=== PATIENT | male | born 1975 | race Caucasian/White ===

== ENCOUNTER 2021-01-28 14:34 | Emergency (ER) | payer MEDICAID, SELFPAY ==
[2021-01-28 14:35] VITALS: BP 145/89; PULSE 113; RESP 18; TEMP 36.6; O2SAT 100; BMI 22.0
--- NOTE | 2021-01-28 14:56 | ED.RN ---
PT POCKET KNIFE LOCKED IN SECURITY OFFICE.
--- NOTE | 2021-01-28 15:00 | ED.DCSUM_ITS ---
History of Present Illness Chief Complaint: Alt LOC Informant: Patient, - - Law enforcement Onset: Today - Law enforcement was concern regarding his behavior. His car was found in a field. No reported damage. He walked from his vehicle because his phone did not work and he thought he was dehydrated. He also states he was getting hot in the car., Yesterday - Per significant other abnormal behavior yesterday Context: - - Certain Timing: Intermittent - Presumed Quality: Abnormal behavior per significant other and parents Location: Brought in by EMS for evaluation. 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 Patient stated that his parents thought his behavior was normal. He volunteered this after I informed him that his sign ificant other thought his behavior was abnormal last evening. He denies drug use. He reported drinking 1 beer to EMS. He was treated with IV penicillin for the tertiary syphilis and placed on prednisone because of bilateral optic neuritis. He does report intermittent photophobia. He presently denies headache. He denies change in his vision from baseline. He denies ringing in his ears or decreased hearing. Nuys trouble speech or swallowing. He denies cardiac respiratory symptoms. He does report nausea vomiting diarrhea. Denies dysuria, frequency, urgency or hematuria. He denies paresthesia, anesthesia or motor weakness. He denies problems with balance. Patient did confirm he has had problems with electrolytes in the past with hyponatremia and hypokalemia. He is also diabetic. Patient denies suicidal homicidal ideation. Patient significant other is in the department. Single there is known patient for 19 to 20 years. He states he is still receiving treatment for tertiary syphilis. He states he does not use drugs. He drives for [employer]. He believes that is the reason that he is in [place]. He was informed that to complete his evaluation a urine specimen is required. He states he would let him know that a urine specimen was needed and if unremarkable will be able to go home. Prior similar symptoms: Yes - Hyponatremia Recent Illness/Hospitalization: No - Past Medical History (1) History of tertiary syphilis Status: Acute (2) History of hyponatremia Status: Acute Past Medical History - Allergies and Home Meds Allergies/Adverse Reactions: Allergies ondansetron [From Zofran] Allergy (Verified 01/28/21 14:39) Hives lorazepam [From Ativan] Adverse Reaction (Verified 01/28/21 14:39) NEEDS FOLLOW-UP Primary Care Physician: Sandy Jennings,Out of [NON-STAFF] - Prior records reviewed: No Surgical History: noncontributory Lives: Spouse/ Significant Other Smoking Status: Former smoker Alcohol: Occasional Drugs: None Review of Systems General: Denies: Chills, Fever, Malaise, Subjective Eyes: Reports: Visual changes - bilaterally. Denies: Blurred Vision - bilaterally, Diplopia ENT: Denies: Bilateral ear pain, Rhinorrhea, Sore throat Cardiovascular: Denies: Chest pain, Palpitations Respiratory: Denies: Dyspnea, Cough, Dyspnea on exertion Gastrointestinal: Reports: Nausea. Denies: Abdominal pain, Vomiting, Diarrhea, Constipation, Melena, Hematochezia Genitourinary: Denies: Dysuria, Hematuria, Frequency Musculoskeletal: Denies: Myalgias, Arthralgias, Neck pain, Back pain, Swelling, Extremity Pain, -, - Skin: Denies: Rash, Wounds Neurological: Denies: Headache, Weakness, Numbness Psych: Denies: Depression, Anxiety, Suicidal thoughts Endocrine: Denies: Polyuria, Polydipsia Hematologic: Denies: Easy bruising, Easy bleeding Physical Exam Vital Signs/Narrative: Vital Signs Temp Pulse Resp BP Pulse Ox 01/28/21 14:35 97.8 F 113 H 18 145/89 H 100 Inital Vital Signs reviewed: Yes General: Well nourished, Well developed, No Acute Distress Head: Normocephalic, Atraumatic Eyes: Perrl, EOMI, - - There is no APD. There is no nystagmus.. Negative for: Pale conjunctiva, Scleral icterus ENT: Moist mucous membranes, No rhinorrhea, TM's clear Neck: Supple, Nontender, No lymphadenopathy, No JVD Cardiovascular: Regular rhythm, No murmurs, Normal S1, Normal S2, Tachycardia Respiratory: No distress, CTA bilaterally, Chest nontender Abdomen: Soft, Nontender, Nondistended, Normal bowel sounds Rectal: Deferred Back: Nontender, Normal Inspection. Negative for: CVA tenderness Extremities: Nontender, No edema Skin: Normal color, No rash, Trauma - Abrasions upper and lower extremity. Neurological: Alert, Oriented x3, Cranial nerves II-XII grossly intact, Normal Strength, Normal Sensation, Normal DTR, Normal Gait, - - Cerebellar testing normal Psychological: Normal affect, Normal Mood Diagnostic/Tx/Re-eval Laboratory Results 01/28/21 01/28/21 01/28/21 15:20 15:20 15:30 WBC Cancelled Corrected WBC Cancelled RBC Cancelled Hgb Cancelled Hct Cancelled MCV Cancelled MCH Cancelled MCHC Cancelled RDW Std Deviation Cancelled RDW Coeff of Kuldeep Cancelled Plt Count Cancelled MPV Cancelled Immature Gran % (Auto) Cancelled Neut % (Auto) Cancelled Lymph % (Auto) Cancelled Greene % (Auto) Cancelled Eos % (Auto) Cancelled Baso % (Auto) Cancelled Absolute Neuts (auto) Cancelled Absolute Lymphs (auto) Cancelled Total Counted Cancelled Neutrophils % (Manual) Cancelled Band Neutrophils % Cancelled Lymphocytes % (Manual) Cancelled Monocytes % (Manual) Cancelled Eosinophils % (Manual) Cancelled Basophils % (Manual) Cancelled Metamyelocytes % Cancelled Myelocytes % Cancelled Promyelocytes % Cancelled Blast Cells % Cancelled Plasma Cell % (Manual) Cancelled Other Cells % Cancelled Nucleated RBC % Cancelled Nucleated RBCs/100 WBC Cancelled Differential Comment Cancelled Diff Path Review Cancelled Hypersegmented Neuts Cancelled Atypical Lymphocytes Cancelled Reactive Lymphocytes Cancelled Smudge Cells Cancelled Toxic Granulation Cancelled Toxic Vacuolation Cancelled Dohle Bodies Cancelled Azael Rods Cancelled Platelet Estimate Cancelled Plt Morphology Comment Cancelled RBC Morphology Cancelled Polychromasia Cancelled Hypochromasia Cancelled Poikilocytosis Cancelled Basophilic Stippling Cancelled Anisocytosis Cancelled Microcytosis Cancelled Macrocytosis Cancelled Spherocytes Cancelled Sickle Cells Cancelled Target Cells Cancelled Tear Drop Cells Cancelled Ovalocytes Cancelled Stomatocytes Cancelled [place] Bodies Cancelled Shavon Cells Cancelled Bite Cells Cancelled Crenated Cell Cancelled Acanthocytes (Spur) Cancelled Rouleaux Cancelled Schistocytes Cancelled Sodium 138 Potassium 2.9 L Chloride 99 Carbon Dioxide 36.0 H Anion Gap 3 L BUN 19 H Creatinine 1.15 Estim Creat Clear Calc 82.67 Est GFR (MDRD) Af Amer 87 Est GFR (MDRD) Non-Af 72 BUN/Creatinine Ratio 16.5 Glucose 116 H Calcium 8.8 Total Bilirubin 0.70 AST 41 H ALT 36 Alkaline Phosphatase 109 Total Protein 7.1 Albumin 3.5 Globulin 3.6 Albumin/Globulin Ratio 1.0 Ethyl Alcohol < 3.0 01/28/21 15:30 WBC 11.4 H Corrected WBC RBC 4.87 Hgb 14.0 Hct 42.6 MCV 87.5 MCH 28.7 MCHC 32.9 RDW Std Deviation 46.7 H RDW Coeff of Kuldeep 14.6 Plt Count 356 MPV 8.1 Immature Gran % (Auto) 1.500 H Neut % (Auto) 62.8 Lymph % (Auto) 28.3 Greene % (Auto) 6.8 Eos % (Auto) 0.3 Baso % (Auto) 0.3 Absolute Neuts (auto) 7.2 Absolute Lymphs (auto) 3.23 Total Counted Neutrophils % (Manual) Band Neutrophils % Lymphocytes % (Manual) Monocytes % (Manual) Eosinophils % (Manual) Basophils % (Manual) Metamyelocytes % Myelocytes % Promyelocytes % Blast Cells % Plasma Cell % (Manual) Other Cells % Nucleated RBC % 0 Nucleated RBCs/100 WBC Differential Comment Diff Path Review Hypersegmented Neuts Atypical Lymphocytes Reactive Lymphocytes Smudge Cells Toxic Granulation Toxic Vacuolation Dohle Bodies Azael Rods Platelet Estimate Plt Morphology Comment RBC Morphology Polychromasia Hypochromasia Poikilocytosis Basophilic Stippling Anisocytosis Microcytosis Macrocytosis Spherocytes Sickle Cells Target Cells Tear Drop Cells Ovalocytes Stomatocytes [place] Bodies Shavon Cells Bite Cells Crenated Cell Acanthocytes (Spur) Rouleaux Schistocytes Sodium Potassium Chloride Carbon Dioxide Anion Gap BUN Creatinine Estim Creat Clear Calc Est GFR (MDRD) Af Amer Est GFR (MDRD) Non-Af BUN/Creatinine Ratio Glucose Calcium Total Bilirubin AST ALT Alkaline Phosphatase Total Protein Albumin Globulin Albumin/Globulin Ratio Ethyl Alcohol Alcohol level is negative. Electrolytes reveal mild hypokalemia. Sodium is normal. CBC and differential are unremarkable. The white count is slightly elevated but is not significant. Patient refuses to give urine specimen. Per significant other he is at baseline. - Medical Decision Making Patient at this time is alert oriented appears appropriate. He is willing to have blood work to evaluate for electrolyte abnormality. Because he admits to drinking beer alcohol level was obtained. Blood sugar per EMS was 155. He was not placed under suicide precautions since he is alert oriented and is voicing no suicidal thoughts. He did admit that his parents thought his behavior was abnormal. ED Disposition - Plan for ED Patient: Disposition: Home or Assisted Living Diagnosis: Altered mental status, Visual hallucination Instructions: ED ALOC Referrals: [facility],Out of [NON-STAFF] -
--- NOTE | 2021-01-28 15:33 | ED.RN ---
PT BROUGHT TO POLICER BY PD. PT DENIES SUICIDAL OR HOMICIDAL IDEATION. PT IS PINK SLIPPED AT THIS TIME. PER DR. MARTINEZ, PT IS ABLE TO KEEP HIS BELONGINGS AT THIS TIME. CHARGE NURSE COCO INFORMED. PT HESITANT, BUT STATES,AGREEING TO PLAN OF CARE AT THIS TIME. PT STATES I DON'T SEE WHY I NEED TO BE HERE, I CAN JUST GO TO MY DOCTOR IN [place] AND HAVE MY BLOOD DRAWN HERE. DON'T YOU HAVE TO ASK FOR MY CONSENT. THIS RN PROVIDES THERAPEUTIC COMMUNICATION WITH PT, EXPLAINING PLAN OF CARE AND CONCERN FOR WHY PATIENT WAS BROUGHT IN. PT REMAINS AGITATED, BUT IS STILL AGREEABLE TO PLAN OF CARE AT THIS TIME. PT GIVEN DIET COKE REQUESTED.
[2021-01-28 15:37] LABS: Absolute Lymphocyte Count 3.23 X10^3/uL (0.83-4.51); Absolute Neutrophil Count 7.2 X10^3/uL (2.0-7.7); Basophil# 0.03 X10^3/uL; Basophil% 0.3 % (0-1); Eosinophil# 0.04 X10^3/uL; Eosinophils% 0.3 % (0-5); Hematocrit 42.6 % (40-54); Lymphocyte # 3.23 X10^3/ul (4.0); Lymphocyte % 28.3 % (19-41); Mean Corp Hgb Conc 32.9 g/dL (32-36); Mean Corpuscular Hgb 28.7 pg (27.0-32.0); Mean Corpuscular Volume 87.5 fL (80-94); Mean Platelet Vol. 8.1 fl (6.2-12.0); Monocyte# 0.78 X10^3/uL; Monocyte% 6.8 % (0-10); NRBC Flagged by Analyzer 0 % (0-5); Neutrophil # 7.18 X10^3/uL (2.7-7.7); Neutrophil % 62.8 % (47-70); Platelet Count 356 K/mm3 (150-450); RBC Distribution Width CV 14.6 % (11.6-14.6); RBC Distribution Width SD 46.7 fl (35.1-43.9); Red Blood Count 4.87 M/mm3 (4.6-6.2); White Blood Count 11.4 K/mm3 (4.4-11.0)
[2021-01-28 15:48] LABS: Alcohol, Blood (Medical)-Serum < 3.0 mg/dL
[2021-01-28 15:49] LABS: AST(SGOT) 41 U/L (15-37); Alanine Aminotransfer ALT/SGPT 36 U/L (16-61); Albumin, Serum 3.5 g/dL (3.2-5.0); Alkaline Phosphatase 109 U/L (45-117); Anion Gap 3 (5-15); BUN 19 mg/dL (7-18); BUN/Creat Ratio 16.5 RATIO (10-20); Calcium,Total 8.8 mg/dL (8.5-10.1); Chloride 99 mmol/L (98-107); Creatinine, Serum 1.15 mg/dL (0.70-1.30); EST Glomerular Filtration Rate 72 mL/min (>60); Est Glom Filt Rate - Afr Amer 87 mL/min (>60); Estimated Creatinine Clearance 82.67 ml/min; Globulin 3.6 g/dL (2.2-4.2); Glucose 116 mg/dL (74-106); Potassium 2.9 mmol/L (3.5-5.1); Protein, Total 7.1 g/dL (6.4-8.2); Sodium Level 138 mmol/L (136-145)
== END 2021-01-28 16:29 | disposition home or self-care (01) ==
PROVIDERS: Emergency Provider Emergency Medicine
DX: R41.82 Altered mental status, unspecified (principal); R44.1 Visual hallucinations; E87.6 Hypokalemia; A52.79 Other symptomatic late syphilis; H46.9 Unspecified optic neuritis; E11.9 Type 2 diabetes mellitus without complications; Z79.52 Long term (current) use of systemic steroids; Z79.899 Other long term (current) drug therapy; Z87.891 Personal history of nicotine dependence
CPT/HCPCS: 80053; 82077; 85025; 99285; A4216